=== PATIENT | male | born 1990 | race Native Hawaiian/Other Pacific Islander ===

== ENCOUNTER 2020-03-21 14:45 | Emergency (ER) | payer OTHER, SELFPAY ==
[2020-03-21 14:48] VITALS: BP 144/74; PULSE 96; RESP 16; TEMP 36.8; O2SAT 97; BMI 32.1
[2020-03-21] MEDS: LIDOCAINE 1% W/EPI 1 ML SUBCUT (16:32)
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
[2020-03-21] MEDS: cephALEXin 250 MG CAPSULE 500 MG PO (16:49)
[2020-03-21] MEDS: BACITRACIN OINT 0.9 GM PCKT 1 APPLIC TOP (16:49)
[2020-03-21 16:57] VITALS: BP 136/75; PULSE 77; RESP 16; O2SAT 94
== END 2020-03-21 17:02 | disposition home or self-care (01) ==
PROVIDERS: Emergency Provider Emergency Medicine
DX: S01.111A Laceration without foreign body of right eyelid and periocular area, initial encounter (principal); W22.8XXA Striking against or struck by other objects, initial encounter
CPT/HCPCS: 12011; 99283; 99284